=== PATIENT | female | born 1970 | race Caucasian/White ===

== ENCOUNTER 2017-08-21 08:35 | Observation (INO) ==
[2017-08-21] MEDS ORDERED: Sodium Chloride 0.9% 1,000 ML PRIMARY IV ONE (08:43)
[2017-08-21] MEDS ORDERED: NORMAL SALINE 10 ML SYRINGE FLUSH IVP PRN ×2 (08:43→12:01)
--- NOTE | 2017-08-21 08:50 | EKG ---
[address] [place] [id number] Measurements Intervals Balm Rate: 88 P: 52 VT: 139 QRS: 38 QRSD: 92 T: 31 QT: 389 QTc: 435 Interpretive Statements SINUS RHYTHM CANNOT R/O INFERIOR MYOCARDIAL INFARCTION, AGE UNDETERMINED Compared to ECG 04/29/2016 02:43:59 Criteria for inferior infarction now present Electronically Signed On 08-21-17 12:16:58 MST by Tray Tadeo [email or web address]
--- NOTE | 2017-08-21 08:52 | PDOC ---
Neuro Symptoms / Deficit HPI - General Chief Complaint: Neurological Complaints Stated Complaint: POSSIBLE STROKE, SLURRED SPEECH Date Seen by Provider: 08/21/17 Time Seen by Provider: 08:45 Source: POSITIVE: Patient Exam Limitations: POSITIVE: No limitations Nurse's Notes Reviewed & Considered: Yes - History of Present Illness Initial Comments: The patient is a 47-year-old female who presents to the emergency department with complaints of speech difficulties. She states that at approximately 10:00 last night she noticed that she was having a difficult time saying the word that she wanted to and every now and then she was mispronouncing a word. She states that the symptom seems to come and go a little bit. The symptoms were persistent this morning and she was going to go see her doctor at the medical office and they recommended that she come to the emergency room by ambulance. She decided to come by private vehicle instead. She denies any associated headache, change in vision, increased numbness or weakness in her arms or legs, chest pain or shortness of breath. She did have a stroke in May of last year which affected her right side and she does have some residual numbness from that. She does report that she had some stomach flu symptoms last week which seemed to resolve currently. - Patient Home Medications Home Medications: Home Medications Aspirin [Kori Chewable] 81 mg PO DAILY 07/06/17 atorvastatin 40 mg tablet 40 mg PO BEDTIME #30 tab 07/18/17 - Patient Allergies Allergies/Adverse Reactions: Allergies 3 Allergy/AdvReac Type Severity Reaction Status Date / Time levofloxacin [From Levaquin] Allergy Intermediate RASH Verified 08/21/17 08:44 Past Medical History - heen HEENT History: Denies History Cardiovascular History: Denies History Respiratory History: Denies History Gastrointestinal History: GERD, Pancreatitis Additional Gastrointestinal History: ERCP X6 MOST RECENT 05/22/11; REPORTEDLY HAD PANCREATIC STONES REMOVED AT THE [facility] Genitourinary History: Denies History Endocrine History: Denies History Musculoskeletal History: Denies History Prosthesis or Implant: No Neurological History: CVA Blood Disorders: Denies History Psychiatric History: Depression, Anxiety Disorders History of Sexually Transmitted Diseases: No Cancer History: Other (please comment) History of MDRO: No History of Other Communicable Diseases: No Alcohol Use: None In the Past 12 Months, Have Used or Abuse Any Substance: Marijuana Previous Surgical History: Yes Type / Date of Surgery: CHOLECYSTECTOMY, ERCP x6, TUBAL LIGATION, TONSILLECTOMY , BLADDER SURGERY Anesthesia Reactions: No Malignant Hyperthermia: No Significant Family History: COPD, Diabetes, Heart disease, Hypertension Past Medical History Reviewed: Reviewed - No Changes ROS - Limitations ROS Limitations: No Limitations Constitution: DENIES: Chills, Fever Cardiovascular: DENIES: Chest Pain, Heart Palpitations, Edema Respiratory: DENIES: Shortness Of Breath Neurological: REPORTS: Numbness (She has some numbness in her right arm and leg however this is residual from her previous stroke). DENIES: Headache, Difficulty Walking, Weakness Gastrointestinal: REPORTS: Vomitting (Last week, none currently). DENIES: Abdominal Pain Musculoskeletal: REPORTS: Denies MS Symptoms Genitourinary: REPORTS: Denies Symptoms Eyes: REPORTS: Denies Symptoms ENT: REPORTS: Denies Symptoms Skin: DENIES: Rash Neuro Symptoms / Deficit Exam - General Appearance General Appearance: POSITIVE: No Acute Distress, Mild Distress - HEENT HEENT: POSITIVE: Head Inspection Nml, Eyes Inspection Nml, Ears Inspection Nml, Pharynx Inspect. Nml, PERRL, EOMI - Neuro / Psych Higher Functions: POSITIVE: Oriented to Person, Oriented to Place, Oriented to Time, Normal Speech Cranial Nerves: POSITIVE: Normal As Tested Peripheral Exam: POSITIVE: Sensation Normal, Motor Normal, Other (No focal deficits detected on exam) Neuro Symptom/Deficit Progress - Patient's Progress MDM / ED Course: On presentation to the emergency room the patient is complaining of speech difficulties. Her speech here appears fairly normal. She does not have any obvious detectable focal neurologic deficits. Symptoms started at 10:00 last night. At this point EKG, bedside blood sugar, labs, urinalysis and MRI of the brain have been ordered. Dr. Roger assumed care of the patient at 08 50. Patient Care Time - Estimated PCT Patient Care Time (In Minutes): 10 Vital Signs - VS Reviewed Vital Signs Reviewed: Yes (written nursing documentation reviewed) Discharge Clinical Impression: Difficulty with speech, History of CVA (cerebrovascular accident) Discharge Disposition: Other (Patient care transferred to Dr. Roger at 08 50) Follow Up With: HILLARY DOWLING [Primary Care Provider] -
[2017-08-21] MEDS ORDERED: LORazepam 2 MG/1 ML VIAL IVP ONE ×2 (09:24→20:30)
[2017-08-21 09:25] LABS: BASOPHILS # (AUTO) 0.05 10*3/UL; BASOPHILS % (AUTO) 0.4 % (0-1); EOSINOPHILS # (AUTO) 0.49 10*3/UL; EOSINOPHILS % (AUTO) 3.7 % (0-8); Hematocrit [HCT] 40.4 % (37.0-47.0); Hemoglobin [HGB] 13.2 g/dL (12.0-16.0); LYMPHOCYTES # (AUTO) 3.43 10*3/uL; MEAN CORPUSCULAR HEMOGLOBIN 31.1 PG (27-31); MEAN CORPUSCULAR HGB CONC 32.7 g/dL (33-37); MEAN CORPUSCULAR VOLUME 95.3 FL (81-99); MEAN PLATELET VOLUME 9.9 FL (7.4-12.2); MONOCYTES # (AUTO) 0.79 10*3/UL (0.3-0.8); NEUTROPHILS # (AUTO) 8.45 10*3/UL; NEUTROPHILS % (AUTO) 63.7 % (50-80); RED BLOOD COUNT 4.24 10^6/uL (4.20-5.40)
[2017-08-21 09:27] LABS: PLATELET MORPHOLOGY COMMENT NORMAL MORPHOLOGY (NORM); RBC MORPHOLOGY COMMENT NORMAL MORPHOLOGY (NORM); WBC MORPHOLOGY COMMENT NORMAL MORPHOLOGY (NORM)
[2017-08-21 09:46] LABS: BLOOD UREA NITROGEN 9 mg/dL (7-22); SERUM ALBUMIN 3.7 g/dL (3.5-4.8)
--- NOTE | 2017-08-21 10:27 | PDOC ---
Transfer of Care - Care Accepted Time Care Transferred: 09:00 Report from Transferring Physician Received: Yes MDM / ED Course: Patient had onset of neurological symptoms, including difficulty finding the right word and difficulty speaking, which began last night approximately 10 PM. She reported to the emergency room this morning for evaluation and neurological exam was essentially normal. Home Medications: Home Medications Aspirin [Kori Chewable] 81 mg PO DAILY 07/06/17 atorvastatin 40 mg tablet 40 mg PO BEDTIME #30 tab 07/18/17 Allergies/Adverse Reactions: Allergies levofloxacin [From Levaquin] Allergy (Intermediate, Verified 08/21/17 08:44) RASH Vital Signs Reviewed: Yes Nurse's Notes Reviewed & Considered: Yes - Pending Patient Care Items Pending Patient Care Items: POSITIVE: Labs, CT / MRI Results - Expected Patient Outcome Tentative Impression of Patient: Possible TIA Expected Disposition: POSITIVE: Admit Observation - Re-Evaluation of Patient Re-Examine Time:: 10:55 Disposition of Patient: POSITIVE: Admitted Counseled: POSITIVE: Patient, RE: Lab Results, RE: Radiology Results, RE: DX Pending Test Results Documented: Yes Clinical Impression Documented: Yes - Results Reviewed Lab Results Reviewed by Me: Yes Lab Results: Laboratory Results 08/21/17 08/21/17 08/21/17 Range/Units 09:23 09:23 09:23 WBC 13.25 H (4.8-10.8) 10^3/uL RBC 4.24 (4.20-5.40) 10^6/uL Hgb 13.2 (12.0-16.0) g/dL Hct 40.4 (37.0-47.0) % MCV 95.3 (81-99) FL MCH 31.1 H (27-31) PG MCHC 32.7 L (33-37) g/dL RDW Std Deviation 45.7 (39-50) fL RDW Coeff of Ajit 13.5 (11.5-14.5) % Plt Count 313 (140-350) 10*3/uL MPV 9.9 (7.4-12.2) FL Immature Gran % (Auto) 0.3 (0-5) % Neut % (Auto) 63.7 (50-80) % Lymph % (Auto) 25.9 (10-50) % Payette % (Auto) 6.0 (5-15) % Eos % (Auto) 3.7 (0-8) % Baso % (Auto) 0.4 (0-1) % Immature Gran # (Auto) 0.04 10*3/UL Neut # (Auto) 8.45 10*3/UL Lymph # (Auto) 3.43 10*3/uL Payette # (Auto) 0.79 (0.3-0.8) 10*3/UL Eos # (Auto) 0.49 10*3/UL Baso # (Auto) 0.05 10*3/UL WBC Morphology Comment Normal morphology (NORM) Plt Morphology Comment Normal morphology (NORM) RBC Morph Comment Normal morphology (NORM) PT (9.7-11.4) secs INR (0.00-5.90) N/A APTT (22.6-36.2) SECS Sodium 141 (135-145) meq/L Potassium 4.0 (3.8-5.2) meq/L Chloride 107 (98-112) meq/L Carbon Dioxide 23 (23-33) meq/L Anion Gap 11 (5-20) BUN 9 (7-22) mg/dL Creatinine 0.9 (0.50-1.20) mg/dL Estimated GFR > 60 (>60 ml/min/1.73m(2)) BUN/Creatinine Ratio 10.00 (6-20) Glucose 123 H (78-110) mg/dL Calculated Osmolality 291.0 (267-292) mOsm/kg Lactic Acid (0.70-2.10) MMOL/L Calcium 10.4 (8.7-10.7) mg/dL Magnesium 1.8 (1.6-2.4) mg/dL Total Bilirubin 0.5 (0.3-1.2) mg/dL AST 16 (8-39) IU/L ALT 49 (9-52) IU/L Alkaline Phosphatase 91 (38-126) IU/L Troponin I 0.000 (< 0.040) ng/mL Total Protein 6.3 (6.1-8.0) g/dL Albumin 3.7 (3.5-4.8) g/dL Globulin 2.5 (2.50-4.10) g/dL Albumin/Globulin Ratio 1.40 (1.3-2.0) mg/g 08/21/17 08/21/17 Range/Units 09:23 09:23 WBC (4.8-10.8) 10^3/uL RBC (4.20-5.40) 10^6/uL Hgb (12.0-16.0) g/dL Hct (37.0-47.0) % MCV (81-99) FL MCH (27-31) PG MCHC (33-37) g/dL RDW Std Deviation (39-50) fL RDW Coeff of Ajit (11.5-14.5) % Plt Count (140-350) 10*3/uL MPV (7.4-12.2) FL Immature Gran % (Auto) (0-5) % Neut % (Auto) (50-80) % Lymph % (Auto) (10-50) % Payette % (Auto) (5-15) % Eos % (Auto) (0-8) % Baso % (Auto) (0-1) % Immature Gran # (Auto) 10*3/UL Neut # (Auto) 10*3/UL Lymph # (Auto) 10*3/uL Payette # (Auto) (0.3-0.8) 10*3/UL Eos # (Auto) 10*3/UL Baso # (Auto) 10*3/UL WBC Morphology Comment (NORM) Plt Morphology Comment (NORM) RBC Morph Comment (NORM) PT 10.4 (9.7-11.4) secs INR 0.98 (0.00-5.90) N/A APTT 32.5 (22.6-36.2) SECS Sodium (135-145) meq/L Potassium (3.8-5.2) meq/L Chloride (98-112) meq/L Carbon Dioxide (23-33) meq/L Anion Gap (5-20) BUN (7-22) mg/dL Creatinine (0.50-1.20) mg/dL Estimated GFR (>60 ml/min/1.73m(2)) BUN/Creatinine Ratio (6-20) Glucose (78-110) mg/dL Calculated Osmolality (267-292) mOsm/kg Lactic Acid 1.7 (0.70-2.10) MMOL/L Calcium (8.7-10.7) mg/dL Magnesium (1.6-2.4) mg/dL Total Bilirubin (0.3-1.2) mg/dL AST (8-39) IU/L ALT (9-52) IU/L Alkaline Phosphatase (38-126) IU/L Troponin I (< 0.040) ng/mL Total Protein (6.1-8.0) g/dL Albumin (3.5-4.8) g/dL Globulin (2.50-4.10) g/dL Albumin/Globulin Ratio (1.3-2.0) mg/g - Consult Consult (If Yes, Name of Consulting MD & Time Called): Yes (Dr. Ashton 10:56 hrs) Patient Care Time - Estimated PCT Patient Care Time (In Minutes): 10 Vital Signs - Recent Vital Signs Vital Signs: Vital Signs (Last 8 hours) Temp Pulse Pulse Resp BP Pulse Ox 08/21/17 08:52 88 08/21/17 08:35 97.1 F 103 H 21 128/85 96 - VS Reviewed Vital Signs Reviewed: Yes Discharge Clinical Impression: Difficulty with speech, History of CVA (cerebrovascular accident), Transient ischemic attack Discharge Disposition: Admit to Observation Condition: Stable Patient Instructions Given at Discharge: Transient Ischemic Attack (ED) Follow Up With: HILLARY DOWLING [Primary Care Provider] -
--- NOTE | 2017-08-21 11:12 | DI ---
MRI Brain WO Contrast,08/21/2017 9:12 AM: Clinical History: Speech difficulty Previous Exam: CT head performed July 06, 2017 Findings: Multiplanar MR images are obtained through the brain without contrast, and demonstrate normal, symmet rajan ventricles and other CSF containing spaces. There is no mass, hemorrhage or midline shift. Motion artifact limits evaluation. There is no abnormally increased FLAIR signal. There is some T2 shine through noted on the diffusion mapping. There is no abnormally restricted diffusion. The major vascular flow voids are unremarkable but not well evaluated due to motion artifact. Visualized portions of the upper cervical spine are unremarkable. The skull base is unremarkable. Cer ebellopontine angles are grossly normal. Paranasal sinuses are unremarkable. Impression: 1. No evidence of acute ischemia. 2. Mild mucoperiosteal thickening within the right ethmoid sinuses could represent some sinusitis.
[2017-08-21] MEDS ORDERED: LIDOCAINE W/ SODIUM BICARB 0.5 ML SYR SUBD PRN (12:01)
[2017-08-21] MEDS: Sodium Chloride 0.9% 1,000 ML PRIMARY IV SCH ×2 (14:02→22:53)
--- NOTE | 2017-08-21 14:47 | PDOC ---
HPI - History of Present Illness History of Present Illness: This very nice 47-year-old female with a past medical history significant for stroke last May which showed a affected her right side. Started having some slurring of speech around 10:00 last night her symptoms persisted this morning and initially she was going to see her primary care physician and then decided to come to the ER recommended by their by the primary care physician she has all my examinationto fit difficulties no eye issues moves all 4 extremities good strength and is back to her normal self Past Medical History Medical History: CVA last May Tobacco Use: Current Every Day Smoker In the Past 12 Months, Have Used or Abuse Any of the Following Substance: Marijuana Medication / Allergies Home Medications: Home Medications 3 Medication Instructions Recorded Confirmed Type Aspirin [Kori Chewable] 81 mg PO DAILY 07/06/17 07/06/17 History atorvastatin 40 mg tablet 40 mg PO BEDTIME #30 tab 07/18/17 07/18/17 Rx Allergies/Adverse Reactions: Allergies 3 Allergy/AdvReac Type Severity Reaction Status Date / Time levofloxacin [From Levaquin] Allergy Intermediate RASH Verified 08/21/17 08:44 Review of Systems - Review of Systems All Systems: Reviewed & No Additional Complaints Except as Stated - Neurological Neurologic: DENIES: Numbness/Paresthesia, Weakness, LOC, Dizziness, Memory Loss , Difficulty Walking, Incoordination Exam - Vitals Vital Signs: Vital Signs Temperature 96.5 F Temperature Source Temporal Artery Scan Pulse Rate 82 Respiratory Rate 14 Blood Pressure 92/54 Pulse Ox 92 Oxygen Delivery Method Room Air Height 5 ft 7 in Weight 157 lb 9.6 oz - General General Appearance: No Acute Distress, Cooperative - Head Head Exam: Normal Inspection, Normocephalic, Atraumatic - Eye Eye Exam: POSITIVE: Normal Appearance, PERRL, EOMI, No Scleral Icterus - ENT ENT Exam: POSITIVE: Normal Exam, Normal External Ear Exam, Normal Oropharynx, TM 's Normal Bilaterally, Mucous Membranes Moist - Neck Neck Exam: Normal Inspection, Full ROM, No Tenderness, No Lymphadenopathy, No Thyromegaly, JVP is not Raised - Respiratory Respiratory Exam: POSITIVE: Clear to Auscultation - Bilaterally, Breathing Non Labored, Normal To Percussion, Normal to Percussion and Palpation - Cardiovascular Cardiovascular Exam: POSITIVE: RRR, No Murmur, No Clicks, No Gallops, No Rubs, PMI Non-Displaced - GI/Abdominal GI/Abdominal Exam: POSITIVE: Normal Bowel Sounds, Non Tender, Non Distended, Soft, No Masses, No Hepatomegaly, No Splenomegaly, No Organomegaly - Extremities Extremities Exam: POSITIVE: Normal Inspection, Full ROM, Normal Capillary Refill , No Clubbing Present, No Edema Present, No Cyanosis Present, Negative Walter's sign, Dosalis Pedis Pulses - Stong & Regular Results - Labs CBC and BMP: 08/21/17 09:23 08/21/17 09:23 Assessment and Plan - Patient Problems (1) Transient ischemic attack Current Visit: Yes Status: Acute Comment: MRI revealed no acute stroke patient is still tired we will observe her overnight most likely will be discharged in a.m. we'll also hydrate her since she seems a little dehydrated for poor skin turgor Code(s): G45.9 - Transient cerebral ischemic attack, unspecified
[2017-08-21] MEDS ORDERED: ATORVASTATIN 40 MG TABLET PO SCH (21:00)
[2017-08-22] MEDS ORDERED: NICOTINE 21 MG /DAY PATCH TRANSDERM ONE (00:27)
[2017-08-22 05:11] LABS: BASOPHILS # (AUTO) 0.04 10*3/UL; BASOPHILS % (AUTO) 0.5 % (0-1); BLOOD UREA NITROGEN 9 mg/dL (7-22); BUN/CREATININE RATIO 12.85 (6-20); EOSINOPHILS # (AUTO) 0.39 10*3/UL; EOSINOPHILS % (AUTO) 4.4 % (0-8); Hematocrit [HCT] 38.8 % (37.0-47.0); Hemoglobin [HGB] 12.2 g/dL (12.0-16.0); LYMPHOCYTES # (AUTO) 2.95 10*3/uL; MEAN CORPUSCULAR HEMOGLOBIN 30.5 PG (27-31); MEAN CORPUSCULAR HGB CONC 31.4 g/dL (33-37); MEAN PLATELET VOLUME 10.3 FL (7.4-12.2); MONOCYTES # (AUTO) 0.53 10*3/UL (0.3-0.8); NEUTROPHILS % (AUTO) 55.6 % (50-80); SERUM ALBUMIN 3.2 g/dL (3.5-4.8)
[2017-08-22 05:34] LABS: PLATELET MORPHOLOGY COMMENT NORMAL MORPHOLOGY (NORM); RBC MORPHOLOGY COMMENT NORMAL MORPHOLOGY (NORM); WBC MORPHOLOGY COMMENT NORMAL MORPHOLOGY (NORM)
[2017-08-22 07:08] VITALS: BP 100/67; RESP 16; TEMP 98.4; O2SAT 95
[2017-08-22] MEDS ORDERED: ACETAMINOPHEN 325 MG TABLET PO PRN (07:15)
[2017-08-22] MEDS: Sodium Chloride 0.9% 1,000 ML PRIMARY IV SCH (07:42)
[2017-08-22] MEDS ORDERED: ASPIRIN 81 MG (BABY) CHEWABLE TABLET PO SCH (09:00)
--- NOTE | 2017-08-22 09:41 | DCSUMMARY ---
Hospitalization Summary Hospital Course: Final Discharge Diagnosis: Current Visit Problems Problem Status Onset Code Difficulty with speech Acute R47.9 Transient ischemic attack Acute G45.9 History of CVA (cerebrovascular accident) Chronic Z86.73 Diagnostic Data, Laboratory Data, and Procedures of Signifigance: History and Physical pertinent to Admission: Course of Hospitalization: Is a very nice 47-year-old female who had a stroke last year was admitted at the [facility] followed by Dr. Nugent. Comes into the ER last night with some slurred speech on my evaluation yesterday she was back to her normal self with the further slurred speech she moves all 4 extremities talking in full sentences able to repeat and multiple hard words. Patient was examined with nurse Branch both times this morning the same stable had a great night's sleep will be discharged in stable and improved condition and a follow-up with her neurologist was done today for her further workup will be decided by neurology. She did have an MRI of her head which showed no acute abnormality On the date of discharge, the patient was examined: Gen.: No acute distress, alert, nontoxic Heart: Regular rate and rhythm, no murmurs, clicks, gallops, or rubs Lungs: Clear to auscultation bilaterally, breathing is nonlabored Abdomen/GI: Normal tones on auscultation, soft, nontender, nondistended Musculoskeletal/extremities: No clubbing, cyanosis, or edema Vitals reviewed and are listed below Vital Signs (24 hrs) Temp Pulse Pulse Pulse Resp BP BP 08/22/17 07:16 68 08/22/17 07:06 98.4 F 74 16 100/67 08/22/17 04:42 98.2 F 73 18 96/64 08/22/17 03:00 79 08/22/17 01:00 96.7 F L 87 16 92/63 08/21/17 23:00 84 08/21/17 20:47 97.6 F 76 16 95/69 08/21/17 19:00 80 76 08/21/17 16:18 74 20 98/62 08/21/17 15:00 77 08/21/17 14:49 08/21/17 13:22 08/21/17 11:25 96.5 F L 82 14 92/54 Pulse Ox 08/22/17 07:16 02/01/18 07:06 95 08/22/17 04:42 98 08/22/17 03:00 08/22/17 01:00 92 08/21/17 23:00 08/21/17 20:47 96 08/21/17 19:00 08/21/17 16:18 95 08/21/17 15:00 08/21/17 14:49 90 08/21/17 13:22 92 08/21/17 11:25 95 Assessment and Plan: 1. As per discharge assessments above 2. Disposition: Home 3. Condition on discharge, stable and improved. 4. Diet: regular diet 5. Activities: resume normal activities 6. Follow-Up: 1. PCP follow-up in [place] with neurology appointment was made for today 2. 7. Medications at the Time of Discharge: Home Medications 3 Medication Instructions Recorded Confirmed Type Aspirin [Kori Chewable Aspirin] 81 mg PO DAILY 07/06/17 07/06/17 History atorvastatin 40 mg tablet 40 mg PO BEDTIME #30 tab 07/18/17 07/18/17 Rx 8. Time, care, counseling and coordination of care for this discharge is greater than 30 minutes. Exam - Vitals Vital Signs: Vital Signs Temperature 98.4 F Temperature Source Temporal Artery Scan Pulse Rate [Apical] 68 Pulse Rate [Pulse Oximeter] 74 Pulse Rate 79 Respiratory Rate 16 Blood Pressure [Right Arm] 100/67 Blood Pressure 92/54 Pulse Ox 95 Oxygen Flow Rate 8 Oxygen Delivery Method Room Air Height 5 ft 7 in Weight 162 lb 6 oz Patient Problems - Patient Problem List (1) Transient ischemic attack Current Visit: Yes Status: Acute Code(s): G45.9 - Transient cerebral ischemic attack, unspecified Category: Medical
--- NOTE | 2017-08-22 09:51 | OTI REPORT ---
Thank you for the referral of Belen Carpenter. She was seen on 08/21/17 for an occupational therapy inpatient evaluation secondary to a TIA. SUBJECTIVE: The patient is a 47-year-old female. The patient reports that she was at home when she started to notice that she was slurring her words and having difficulty articulating her words. She was also having fuzzy thoughts and was being somewhat forgetful. She states she came to the clinic and they suggested that she go to the emergency room and was eventually admitted to the hospital. The patient reports that she lives at home with her and her child. The patient states she has other grown children that live in [place], [place] as well. The patient does report that she is independent in all ADLs, she completes all grocery shopping, cooking, and cleaning tasks for herself and her family. Her works in the [employer] and he works two weeks on/two weeks off, so for two weeks at a time the patient's is out of town. The patient reports some mild tingling/numbness down the right arm as well as in the right leg. The patient did have a stroke on June 05, 2017 per her report and has since noticed some right sided weakness. The patient reports that she has four steps to the entrance of her home with hand rails on either side as well as a tub/shower combo with no hand rails at home. She does not use any adaptive equipment when walking within her home. She is going to a neurology appointment in [place] tomorrow. PAST MEDICAL HISTORY: Past medical history can be found in the patient's medical record. OBJECTIVE FINDINGS: General observations: The patient was oriented to person, place, date, and reason for hospitalization. Bed mobility: The patient demonstrated the ability to move from supine to sitting edge of bed independently. Range of motion: The patient demonstrates upper extremity range of motion for the shoulders, elbows, hands, and wrists that is within normal limits. Strength: Upper extremity strength on the right side was 4/5 for the shoulder, elbow, hand, and wrist. Upper extremity strength on the left was 4+/5 for the shoulder, elbow, hand, and wrist. Transfers: The patient demonstrated the ability to transfer from sit to stand independently. Balance: The patient did have minor losses of balance during standing balance tasks with eyes closed as well as during functional ambulation, especially when other distractions were present. Speech: The patient did have some difficulty articulating her words. When asked to repeat a sentence exactly as it was said to her, she was unable to do the task. Vision: The patient did demonstrate the ability to track horizontally as well as vertically and converge and diverge eyes. ASSESSMENT: Problem List: Upper extremity weakness Decreased mention function/cognition Decreased balance Short-Term Goals: To be met by discharge from inpatient: Patient will increase upper extremity strength by one manual muscle grade bilaterally. Patient will demonstrate the ability to articulate three sentences exactly as they were said without verbal reminders or assistance. Patient will be able to complete all transfers including toilet/shower/car without loss of balance. Long-Term Goals: To be met following discharge from inpatient: Patient will be seen by outpatient physical therapy for continued strengthening. Patient will return home to prior level of function. TREATMENT PLAN: Patient will be seen B.I.D during the week and one time per day over the weekend as an inpatient to address the above goals and objectives. INITIAL TREATMENT: Treatment today consisted of the initial evaluation activities only. HIMANSHU
--- NOTE | 2017-08-22 10:23 | PTI REPORT ---
Thank you for the referral of Belen Carpenter. She was seen on 08/21/17 for an inpatient evaluation secondary to a TIA. SUBJECTIVE: The patient is a 47-year-old female. The patient reports she lives at home with her and her 7-year-old son. She states she has four stairs to enter the house with a hand rail with which she states she does not have any issues. She was fully independent with ADLs and iADLs prior to hospital admission. She states she did have a stroke on June 05, 2017 and does experience right arm and lower extremity tingling on the lateral aspects. The patient denies any pain at this time. PAST MEDICAL HISTORY: Past medical history can be found in the patient's medical record. OBJECTIVE FINDINGS: General observations: The patient has bilateral negative Trujillo's sign and 2+ dorsal pedal pulses bilaterally. Range of motion: Range of motion is within functional limits throughout lower extremities. Strength: Lower extremity strength is 4+/5 throughout. Bed mobility: The patient is able to complete bed mobility of supine rolling to right and supine rolling to left with supervision. Transfers: The patient is able to transfer from sit to stand with supervision. Ambulation: The patient is able to ambulate 175 feet with stand by assist. The patient did have two minor losses of balance during ambulation which resolved with stepping strategy. Balance: Balance was tested today. The patient had a 6" functional reach test. The patient had a Romberg with eyes open x30 seconds and with eyes closed x12 seconds. Sitting dynamic and static balance are both good. Static standing balance is fair plus. Dynamic standing balance is poor plus. ASSESSMENT: The patient has balance deficits consistent with TIA. Subjective and objective findings are also consistent with minor loss of balance and slight generalized weakness. It was recommended that the patient get a cane for external assistance at some point to which the patient was agreeable with. Short-Term Goals: To be met by discharge from inpatient: Patient will be able to complete transfers with independence. Patient will be able to ambulate 150 feet with supervision and no loss of balance for household ambulation. Patient will demonstrate bilateral lower extremity strength of 4+/5. Long-Term Goals: To be met following discharge from inpatient: Patient will be able to ambulate 300 feet for community ambulation with no loss of balance. Patient will demonstrate bilateral lower extremity strength of 5/5 for carry over with ambulation and transfer safety. TREATMENT PLAN: Patient will be seen B.I.D during the week and one time per day over the weekend as an inpatient to address the above goals and objectives. INITIAL TREATMENT: Treatment today consisted of the initial evaluation followed by range of motion , manual resisted activity, ambulation x175 feet with stand by assist with two losses of balance resolved with stepping, and transfer activities. The patient was left in bed with bed alarm on in no apparent distress. Call button was within reach and nursing was notified. [facility] CENTERIla
--- NOTE | 2017-08-22 11:50 | OT.PROG ---
Progress Note Progress Note: S: pt states it feels good to move arm and leg. Reports that she hopes to go home and return as an out-pt. O: pt was seen in her room in the a.m. and completed entire transfer downstairs Ind. She completed Proprioceptive input through UE rolling ball back and forth/ side to side for total of 3 min. She also completed LE prop input as well. Completed UE motion activity with 2# ball in shoulder flex/abd/bicep flex with BUe. She completed 3 min on trampoline also for proprioceptive input through LE' s. She completed 5 min on UE bike and then returned to her room INd. A: pt completed therapy well today, but does display some deficiency's in LE/UE and may benefit from Out-pt therapy P: continue per POC.
--- NOTE | 2017-08-23 15:54 | PT AM DAY ---
Diagnosis : TIA AM - Physical Therapy S: The patient states she is feeling good this morning. O: The patient ambulated 175 feet to PT gym where she performed therapeutic exercises including the NuStep, balance exercises on the AIREX, jack step overs x2 laps, and sit to stands x10. The patient then ambulated 175 feet back to her room where she was left with call light within reach and alarm set. A: The patient tolerated PT well. She was able to perform balance with contact guard assist. She has met all goals at this time. P: Continue seeing patient BID during the week and one time per day over the weekend until discharge. HIMANSHU
== END 2017-08-22 11:46 | disposition home or self-care (01) ==
LOC: MED/SURG 08:35 → ER 08:35 → MED/SURG 11:25 → UNDODISOB 08-22 11:46
PROVIDERS: ADMIT Internal Medicine; ATTEND Internal Medicine

== ENCOUNTER 2018-10-28 17:28 | Inpatient (IN) ==
[2018-10-28] MEDS ORDERED: methylPREDNISolone 125 MG/2 ML VIAL IVP ONE (17:39)
[2018-10-28] MEDS ORDERED: Sodium Chloride 0.9% 1,000 ML PRIMARY IV ONE (17:39)
[2018-10-28] MEDS ORDERED: IPRATROPIUM/ALBUTEROL SULFATE 3 ML NEB NEB ONE (17:39)
--- NOTE | 2018-10-28 17:48 | PDOC ---
Dyspnea HPI - General Chief Complaint: Respiratory Complaint Stated Complaint: SOB Date Seen by Provider: 10/28/18 Time Seen by Provider: 17:40 Source: POSITIVE: Patient Exam Limitations: POSITIVE: No limitations Treatment Prior to Arrival: REPORTS: Albuterol Neb Treatment (She did take an albuterol neb treatment prior to coming to the emergency department) Nurse's Notes Reviewed & Considered: Yes - History of Present Illness Initial Comments: The patient is a 48-year-old female who presents to the emergency department with complaints of increased shortness of breath. She states that she developed upper respiratory symptoms including cough, congestion about 4 or 5 days ago. She states that she has been using neb treatments at home which seemed to help some. Over the past 24 hours she seems to gotten worse and she has increased shortness of breath especially when she gets up and walks around. She has had some fevers especially when the illness first started. She denies any chest pain, pain or swelling in her legs. She does have generalized aches and malaise. She does have a history of smoking approximately 1 pack of cigarettes per day. She does not normally wear oxygen at night. Oxygen saturations were in the mid-80s when she arrived to the emergency department she was placed on O2 per nasal cannula. - Patient Home Medications Home Medications: Home Medications Aspirin [Kori Chewable Aspirin] 81 mg PO DAILY 07/06/17 atorvastatin 40 mg tablet 40 mg PO BEDTIME #30 tab 08/29/18 - Patient Allergies Allergies/Adverse Reactions: Allergies Allergy/AdvReac Type Severity Reaction Status Date / Time levofloxacin [From Levaquin] Allergy Intermediate RASH Verified 09/26/18 14:42 Past Medical History - heen HEENT History: Denies History Cardiovascular History: Hyperlipidemia Respiratory History: Denies History Gastrointestinal History: GERD, Pancreatitis Additional Gastrointestinal History: ERCP X6 MOST RECENT 05/22/11; REPORTEDLY HAD PANCREATIC STONES REMOVED AT THE [facility] Genitourinary History: Denies History Additional Genitourinary History: BLADDER CANCER WITH BLADDER SURGERY Endocrine History: Denies History Musculoskeletal History: Denies History Prosthesis or Implant: No Neurological History: CVA Additional Neurological History: 05/2017 Blood Disorders: Denies History Psychiatric History: Depression, Anxiety Disorders History of Sexually Transmitted Diseases: No Cancer History: Other (please comment) Cancer Treatment / Date(s) of Treatment: SURGICAL REMOVAL History of MDRO: No History of Other Communicable Diseases: No Alcohol Use: None In the Past 12 Months, Have Used or Abuse Any Substance: Marijuana Previous Surgical History: Yes Type / Date of Surgery: CHOLECYSTECTOMY, ERCP x6, TUBAL LIGATION, TONSILLECTOMY, BLADDER SURGERY Anesthesia Reactions: No Malignant Hyperthermia: No Significant Family History: COPD, Diabetes, Heart disease, Hypertension Past Medical History Reviewed: Reviewed - No Changes ROS - Limitations ROS Limitations: No Limitations Constitution: REPORTS: Chills, Fever, Other (General malaise) Cardiovascular: DENIES: Chest Pain, Edema Respiratory: REPORTS: Cough Non Productive (Cough is mostly nonproductive), Cough Productive, Shortness Of Breath, Wheezing Neurological: REPORTS: Headache. DENIES: Numbness, Weakness Gastrointestinal: REPORTS: Denies GI Symptoms Musculoskeletal: REPORTS: Denies MS Symptoms Genitourinary: REPORTS: Denies Symptoms Eyes: REPORTS: Denies Symptoms ENT: REPORTS: Denies Symptoms Skin: DENIES: Rash Dyspnea Physical Exam - General Appearance General Appearance: REPORTS: Alert, Cooperative, No Acute Distress - HEENT HEENT: POSITIVE: Head Inspection Nml, Eyes Inspection Nml, Ears Inspection Nml, Nose Inspection Nml, Pharynx Inspect. Nml, PERRL, EOMI - Neck Neck: REPORTS: Normal Inspection - Respiratory Respiratory: REPORTS: No Respiratory Distress, Other (She does have decreased breath sounds with expiratory wheezes noted bilaterally, rhonchi in the right lung base) - Cardiovascular Cardiovascular: REPORTS: Regular Rate and Rhythm, Heart Sounds Normal - Abdomen Abdomen: Soft: (All Quadrants), Denies Tenderness: (All Quadrants) - Skin Skin: REPORTS: Intact, No Rash - Extremities Extremity: Normal ROM: (All Extremities), Normal Inspection: (All Extremities) - Neurological / Psychological Neurological: POSITIVE: Oriented X3, lighting specialist Normal As Tested, Motor Normal, Sensation Normal Dyspnea Progress - Results Reviewed by me Xrays/CTs/US Reviewed by me: Yes Discussed with Radiologist: Yes Radiology Findings: Chest x-ray shows no acute findings per radiologist. CT of the chest shows no evidence of PE, she does have some groundglass opacities as well as findings consistent with emphysema. 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 She has evidence of fatty liver per radiologist. Lab Results Reviewed by Me: Yes CBC and BMP: 10/28/18 18:27 10/28/18 18:27 Lab Results:: Laboratory Results 10/28/18 10/28/18 10/28/18 18:20 18:25 18:27 WBC RBC Hgb Hct MCV MCH MCHC RDW Std Deviation RDW Coeff of Ajit Plt Count MPV Neutrophils % (Manual) Band Neutrophils % Lymphocytes % (Manual) Monocytes % (Manual) Eosinophils % (Manual) Basophils % (Manual) Metamyelocytes % Myelocytes % Promyelocytes % Blast Cells WBC Morphology Comment Plt Morphology Comment RBC Morph Comment D-Dimer VBG pH 7.46 H VBG pCO2 33 L VBG HCO3 24 VBG Base Excess 0 Sodium Potassium Chloride Carbon Dioxide Anion Gap BUN Creatinine Estimated GFR BUN/Creatinine Ratio Glucose Calculated Osmolality Lactic Acid 1.0 Calcium Magnesium 1.9 Total Bilirubin AST ALT Alkaline Phosphatase Troponin I C-Reactive Protein 1.2 H NT-Pro-B Natriuret Pep 542 H Total Protein Albumin Globulin Albumin/Globulin Ratio 10/28/18 10/28/18 10/28/18 18:27 18:27 18:27 WBC 10.22 RBC 4.68 Hgb 14.4 Hct 44.5 MCV 95.1 MCH 30.8 MCHC 32.4 L RDW Std Deviation 45.0 RDW Coeff of Ajit 13.4 Plt Count 357 H MPV 9.9 Neutrophils % (Manual) 70 Band Neutrophils % 3 Lymphocytes % (Manual) 22 Monocytes % (Manual) 4 Eosinophils % (Manual) 1 Basophils % (Manual) 0 Metamyelocytes % 0 Myelocytes % 0 Promyelocytes % 0 Blast Cells 0 WBC Morphology Comment See comments Plt Morphology Comment Normal morphology RBC Morph Comment Normal morphology D-Dimer 0.60 H VBG pH VBG pCO2 VBG HCO3 VBG Base Excess Sodium Potassium Chloride Carbon Dioxide Anion Gap BUN Creatinine Estimated GFR BUN/Creatinine Ratio Glucose Calculated Osmolality Lactic Acid Calcium Magnesium Total Bilirubin AST ALT Alkaline Phosphatase Troponin I < 0.012 C-Reactive Protein NT-Pro-B Natriuret Pep Total Protein Albumin Globulin Albumin/Globulin Ratio 10/28/18 18:27 WBC RBC Hgb Hct MCV MCH MCHC RDW Std Deviation RDW Coeff of Ajit Plt Count MPV Neutrophils % (Manual) Band Neutrophils % Lymphocytes % (Manual) Monocytes % (Manual) Eosinophils % (Manual) Basophils % (Manual) Metamyelocytes % Myelocytes % Promyelocytes % Blast Cells WBC Morphology Comment Plt Morphology Comment RBC Morph Comment D-Dimer VBG pH VBG pCO2 VBG HCO3 VBG Base Excess Sodium 139 Potassium 3.6 L Chloride 108 Carbon Dioxide 23 Anion Gap 8 BUN 3 L Creatinine 0.6 Estimated GFR > 60 BUN/Creatinine Ratio 5.00 L Glucose 92 Calculated Osmolality 284.0 Lactic Acid Calcium 9.0 Magnesium Total Bilirubin 0.6 AST 18 ALT 23 Alkaline Phosphatase 134 H Troponin I C-Reactive Protein NT-Pro-B Natriuret Pep Total Protein 6.5 Albumin 3.6 Globulin 2.9 Albumin/Globulin Ratio 1.20 L EKG Interpreted/Reviewed By Me:: Yes EKG Interpretation:: POSITIVE: Normal Sinus Rhythm, Normal Rate, Normal QRS, Normal ST/T - Patient's Progress MDM / ED Course: She was hypoxic on arrival to the emergency department with oxygen saturations of 86% on room air. She was placed on 2 L per nasal cannula which brought her oxygen saturations up to 93%. She was afebrile on arrival. Blood cultures and lactate as well as venous blood gas were drawn with initial IV start. The patient received a DuoNeb as well as Solu-Medrol 125 mg IV. Her venous blood gas revealed a pH of 7.46 with a PCO2 of 33. EKG shows normal sinus rhythm with no acute ST segment changes. She was feeling subjectively better after administration of steroids and neb treatments. Her blood work is unremarkable except for a slightly elevated BNP and slightly elevated d-dimer. Chest x-ray shows some chronic findings with no acute infiltrate or findings per radiologist. Respiratory panel is positive for rhinovirus/enterovirus. Her clinical presentation is most consistent with COPD exacerbation with possible early pneumonia and associated hypoxia. 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 Patient is discussed with Dr. Colunga has agreed to admit the patient for further care. She did receive IV Zithromax prior to admission. - Consult Counseled: POSITIVE: Patient, RE: Lab Results, RE: Radiology Results, RE: DX, RE: Need for F/U Patient Care Time - Estimated PCT Patient Care Time (In Minutes): 40 Vital Signs - Recent Vital Signs Vital Signs: Vital Signs (Last 8 hours) Temp Pulse Pulse Resp BP Pulse Ox 10/28/18 23:25 89 22 93 10/28/18 23:00 96 10/28/18 22:00 80 16 10/28/18 18:02 82 18 91 10/28/18 18:01 77 18 91 10/28/18 17:39 98.7 F 82 16 119/68 90 10/28/18 17:29 97.0 F 85 20 121/75 92 - VS Reviewed Vital Signs Reviewed: Yes Discharge Clinical Impression: COPD exacerbation, Hypoxia Discharge Disposition: Admit to Inpatient Condition: Fair Date Decision to Admit to Inpatient: 10/28/18 Time Decision to Admit to Inpatient: 21:30
--- NOTE | 2018-10-28 17:55 | EKG ---
[address] [address] Measurements Intervals [place] Rate: 79 P: 68 NM: 135 QRS: 52 QRSD: 90 T: 43 QT: 401 QTc: 435 Interpretive Statements SINUS RHYTHM Compared to ECG 08/10/2018 20:05:23 ST (T wave) deviation no longer present Electronically Signed On 10-28-18 19:02:54 MDT by Tray Tadeo [email or web address]
[2018-10-28 18:36] LABS: VENOUS PH 7.46 (7.32-7.42)
[2018-10-28 18:39] LABS: Hematocrit [HCT] 44.5 % (37.0-47.0); Hemoglobin [HGB] 14.4 g/dL (12.0-16.0); MEAN CORPUSCULAR HEMOGLOBIN 30.8 PG (27-31); MEAN CORPUSCULAR HGB CONC 32.4 g/dL (33-37); MEAN CORPUSCULAR VOLUME 95.1 FL (81-99); MEAN PLATELET VOLUME 9.9 FL (7.4-12.2); RED BLOOD COUNT 4.68 10^6/uL (4.20-5.40)
[2018-10-28 18:45] LABS: BLOOD UREA NITROGEN 3 mg/dL (7-22); SERUM ALBUMIN 3.6 g/dL (3.5-4.8)
[2018-10-28 18:46] LABS: PLATELET MORPHOLOGY COMMENT NORMAL MORPHOLOGY (NORM); RBC MORPHOLOGY COMMENT NORMAL MORPHOLOGY (NORM); WBC MORPHOLOGY COMMENT SEE COMMENTS (NORM)
[2018-10-28 18:47] LABS: BAND NEUTROPHILS % 3 % (0-10); BASOPHILS % (MANUAL) 0 % (0-1); EOSINOPHILS % (MANUAL) 1 % (0-8); METAMYELOCYTES % 0 %; MONOCYTES % (MANUAL) 4 % (0-12); MYELOCYTES % 0 %; NEUTROPHILS % (MANUAL) 70 % (50-80); PROMYELOCYTES % 0 %
--- NOTE | 2018-10-28 19:31 | DI ---
AP CHEST X-RAY, 10/28/2018 5:41 PM : Clinical History: Dyspnea. Previous Exam: 08/10/2018. Soft Tissues: No acute soft tissue abnormality. Bones: Normal. Heart: Normal heart. Lungs: No infiltrates. Effusion(s): None. There is chronic blunting of the right costophrenic angle. Mediastinum: Normal mediastinum. Nodules: No pulmonary nodules. Readin. No acute infiltrate or effusion. 2. There is chronic blunting of the right costophrenic angle.
--- NOTE | 2018-10-28 20:57 | DI ---
CT ANGIOGRAM OF THE CHEST, 10/28/2018 7:06 PM : Clinical History: Hypoxia. Elevated D-dimer test. Previous Exam: 04/29/2016; 08/10/2018. Technique: Scans from base of neck to lung bases with IV contrast. Bolus tracking protocol was not us ed for timing the injection. Non-MIPS and MIPS sagittal/coronal images generated. IV Contrast: 75 mL of Isovue 300 from the left arm. Base of Neck: 12 mm nonfunctioning thyroid nodule at the junction between the right lower pole and is thmus. This patient apparently has had previous thrombosis of the left axillary, subclavian, and left brachiocephalic veins with subsequent minimal and partial recanalization. Only a thin diameter lumen is present in these vessels. There are collateral channels extending over the anterior aspect of the left chest wall that cross the midline and also filled the epidural venous plexus with subsequent re constitution to fill the superior vena cava. The right internal jugular vein has a large caliber. The left internal jugular vein is not visualized. Nodes: Normal axillary, supraclavicular, mediastinal, and hilar lymph nodes. Heart: Normal. No coronary artery calcifications. Aorta: Normal thoracic aorta. No aneurysm or dissection. Pulmonary Arteries: Normal. No pulmonary emboli or infarcts; no pulmonary hypertension. Lungs: No typical alveolar infiltrate. There are patchy groundglass type infiltrates bilaterally that are similar to the study of 04/29/2016, although in different locations. The most recent exam did not show any of these infiltrates or nodular densities. Diffuse small blebs bilaterally indicating centr ilobular emphysema. Effusion(s): None. Nodules: None. Bony Structures: Normal visualized portions of ribs, sternum, scapulae, clavicles, and shoulders. Nor mal visualized portions of thoracic spine. Limited Upper Abdomen: Normal adrenal glands and and mild splenomegaly. Hepatomegaly with diffuse fat ty infiltration. READIN. Normal CTA of the chest. There are no pulmonary emboli or pulmonary infarcts. 2. Patchy groundglass type infiltrates bilaterally. These are similar but in different locations in the lungs to those infiltrate seen on the study from 2015 but absent on the study of 08/10/2018. 3. Centrilobular emphysema. 4. 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 Contrast fills via collate rals over the chest wall and breast that communicate with the internal mammary vein and other deep ve in such as the epidural venous plexus to reconstitute the superior vena cava. 5. Hepatosplenomegaly. There is diffuse fatty infiltration.
[2018-10-28] MEDS ORDERED: LIDOCAINE W/ SODIUM BICARB 0.5 ML SYR SUBD PRN (21:07)
[2018-10-28] MEDS ORDERED: NICOTINE 21 MG /DAY PATCH TRANSDERM PRN (21:10)
--- NOTE | 2018-10-28 21:10 | PDOC ---
HPI - History of Present Illness Date of Service: 10/28/18 Time of Service: 20:50 Chief Complaint: Cough, shortness of breath of 10 days duration History of Present Illness: This is a 48 years old female with medical history significant for history of previous CVA in 2017 currently on aspirin and Lipitor who presented to the hospital with history of cough, nasal congestion, shortness of breath and wheezing being going on for 10 days. Symptoms continued and because of that she came into the ER. In the ER she was found to be hypoxic with saturation of 86%. She was given DuoNeb and that helped. A chest x-ray showed no evidence of infiltrate CT of the chest showed no PE but it did show evidence of patchy infiltrate and she was admitted. She feels somewhat better Compared to when she came in. She did say that she had some fever beginning of her illness but not currently. She did use her son nebulizer treatment at home. Past Medical History Medical History: 1. History of CVA in May 2017. 2. History of previous pancreatitis, had stone removal in the past with ERCP Surgical History: 1. History of cholecystectomy. 2. History of tubal ligation Family History: Reviewed an Not Pertinent Past Social History: She smokes about a pack a day last time she stmoked was 10 days ago, she used to be a heavy drinker but quit at age 28, no drugs. Tobacco Use: Current Every Day Smoker In the Past 12 Months, Have Used or Abuse Any of the Following Substance: Alyse mendez Alcohol Use: None Medication / Allergies Home Medications: Home Medications Medication Instructions Recorded Confirmed Type Aspirin [Kori Chewable Aspirin] 81 mg PO DAILY 07/06/17 09/26/18 History atorvastatin 40 mg tablet 40 mg PO BEDTIME #30 tab 08/29/18 09/26/18 Rx Allergies/Adverse Reactions: Allergies Allergy/AdvReac Type Severity Reaction Status Date / Time levofloxacin [From Levaquin] Allergy Intermediate RASH Verified 09/26/18 14:42 Review of Systems - Review of Systems All Systems: Reviewed & No Additional Complaints Except as Stated Exam - Vitals Vital Signs: Vital Signs Temperature 97.0 F Temperature Source Temporal Artery Scan Pulse Rate [Pulse Oximeter] 85 Pulse Rate 82 Respiratory Rate 18 Blood Pressure [Left Arm] 121/75 Pulse Ox 91 Oxygen Flow Rate 2 Oxygen Delivery Method Nasal Cannula Height 5 ft 7 in Weight 160 lb - General General Appearance: No Acute Distress, Cooperative, Obese - Head Head Exam: Normal Inspection, Atraumatic - Eye Eye Exam: POSITIVE: Normal Appearance - ENT ENT Exam: POSITIVE: Normal Exam - Neck Neck Exam: Normal Inspection - Respiratory Additional Respiratory Exam Details: Very poor air entry but otherwise clear - Cardiovascular Cardiovascular Exam: POSITIVE: RRR - GI/Abdominal GI/Abdominal Exam: POSITIVE: Normal Bowel Sounds, Non Tender, Non Distended, Soft, No Organomegaly - Rectal Rectal Exam: POSITIVE: Deferred - External Exam: POSITIVE: Deferred - Extremities Extremities Exam: POSITIVE: Normal Inspection - Back Back Exam: POSITIVE: Normal Inspection - Neurological Neurological Exam: POSITIVE: Alert, Oriented x 3, CN II-XII Intact, No Facial Droop, Speech Intact / Clear, Moves All Extremities Equally - Psychiatric Psychiatric Exam: POSITIVE: Normal Affect Results - Labs CBC and BMP: 10/28/18 18:27 10/28/18 18:27 - EKG Data -: EKG Interpreted by Me Rate: Normal EKG Shows Normal: Sinus Rhythm - EKG Data EKG Interpretation: Other (EKG shows normal sinus rhythm) - Imaging Status: Report Reviewed by Me (CT chest 1. Normal CTA of the chest. There are no pulmonary emboli or pulmonary infarcts. 2. Patchy groundglass type infiltrates bilaterally. These are similar but in different locations in the lungs to those infiltrate seen on the study from 2016 but absent on the study of 08/10/2018. 3. Centrilobular emphysema. 4. Apparent prior thrombosis of the left axillary, subclavian, and left brachiocephalic veins with only a small channel visible and no discernible left internal jugular vein. Contrast fills via collaterals over the chest wall and breast that communicate with the internal mammary vein and other deep vein such as the epidural venous plexus to reconstitute the superior vena cava. 5. Hepatosplenomegaly. There is diffuse fatty infiltration.) Assessment and Plan - Patient Problems (1) Pneumonia, primary atypical Current Visit: No Status: Acute Comment: I think we'll treat as pneumonia possible atypical infection. Will put her on Zithromax and Rocephin. There may be an element of COPD exacerbation so we'll add steroids and bronchodilator treatment. There is no evidence of PE there is evidence of prior thromboses apparently in the left axillary and subclavian vein. Code(s): J18.9 - Pneumonia, unspecified organism (2) History of stroke Current Visit: Yes Status: Acute Comment: Continue Lipitor and aspirin Code(s): Z86.73 - Personal history of transient ischemic attack (TIA), and cerebral infarction without residual deficits
[2018-10-28] MEDS ORDERED: Patch Removal NICOTINE PATCH TRANSDERM PRN (21:31)
[2018-10-28] MEDS: ATORVASTATIN 40 MG TABLET PO SCH (22:06)
[2018-10-28] MEDS: ASPIRIN 325 MG EC TABLET PO SCH (22:06)
[2018-10-28] MEDS: Sodium Chloride 0.9% 1,000 ML PRIMARY IV SCH (22:07)
[2018-10-28] MEDS: cefTRIAXone Inj 1 GM in Sodium Chloride 0.9% 100 ML IV SCH (22:07)
[2018-10-28] MEDS: traZODone Tab 50 MG TAB PO SCH (22:33)
[2018-10-28] MEDS: ALBUTEROL SULFATE 2.5 MG/3 ML NEB PRN (23:25)
[2018-10-28] MEDS: methylPREDNISolone 125 MG/2 ML VIAL IVP SCH (23:42)
[2018-10-29] MEDS ORDERED: CALCIUM CARBONATE 500 MG (TUMS) CHEWABLE TABLET PO PRN (02:02)
[2018-10-29] MEDS: ALBUTEROL SULFATE 2.5 MG/3 ML NEB PRN (04:57)
[2018-10-29] MEDS: IPRATROPIUM/ALBUTEROL SULFATE 3 ML NEB NEB SCH ×4 (06:47→19:21)
[2018-10-29] MEDS: methylPREDNISolone 125 MG/2 ML VIAL IVP SCH ×2 (07:42→17:37)
[2018-10-29] MEDS: Sodium Chloride 0.9% 1,000 ML PRIMARY IV SCH ×2 (07:43→08:25)
[2018-10-29] MEDS ORDERED: PANTOPRAZOLE 40 MG TABLET PO ONE (08:10)
--- NOTE | 2018-10-29 08:28 | PDOC(PROG) ---
Date of Service: 10/29/18 Time of Service: 08:30 Interval History: Subjective Patient feels somewhat better compared to yesterday. Cough is more productive. Breathing is better. Her appetite is better. She is having some heartburn. She did say that she had the central line in both upper extremities Objective : Data - Labs CBC and BMP: 10/28/18 18:27 10/28/18 18:27 Objective : Exam - General General Appearance: No Acute Distress, Cooperative - Head Head Exam: Normal Inspection - Eye Eye Exam: Normal Appearance - ENT ENT Exam: Normal Exam - Neck Neck Exam: Normal Inspection - Respiratory Additional Respiratory Exam Details: Very poor air entry with occasional wheeze - Cardiovascular Cardiovascular Exam: RRR - GI/Abdominal GI/Abdominal Exam: Normal Bowel Sounds, Non Tender, Non Distended, Soft, No Organomegaly - Rectal Rectal Exam: Deferred - External Exam: Deferred Exam: Deferred - Extremities Extremities Exam: Normal Inspection - Back Back Exam: Normal Inspection - Neurological Neurological Exam: Alert, Oriented x 3, CN II-XII Intact, No Facial Droop, Speech Intact / Clear, Moves All Extremities Equally - Psychiatric Psychiatric Exam: Normal Affect - Integumentary Integumentary Exam: Normal Color Assessment and Plan - Patient Problems (1) Pneumonia, primary atypical Current Visit: No Status: Acute Comment: Continue antibiotics. We'll stop the IV fluid. Continue bronchodilator and will cut back on the steroid. Code(s): J18.9 - Pneumonia, unspecified organism (2) History of stroke Current Visit: Yes Status: Acute Comment: Continue same medications Code(s): Z86.73 - Personal history of transient ischemic attack (TIA), and cerebral infarction without residual deficits (3) COPD exacerbation Current Visit: Yes Status: Acute Comment: I think there is an element of COPD exacerbation secondary to the infection. Continue current treatment. Code(s): J44.1 - Chronic obstructive pulmonary disease with (acute) exacerbation
[2018-10-29] MEDS: ASPIRIN 325 MG EC TABLET PO SCH (09:04)
[2018-10-29] MEDS: Potassium Chloride Tab 10 MEQ TAB PO SCH (09:04)
[2018-10-29] MEDS: ALPRAZolam Tab 0.25 MG TABLET PO PRN (20:03)
[2018-10-29] MEDS: cefTRIAXone Inj 1 GM in Sodium Chloride 0.9% 100 ML IV SCH (21:00)
[2018-10-29] MEDS: traZODone Tab 50 MG TAB PO SCH (21:00)
[2018-10-29] MEDS: ATORVASTATIN 40 MG TABLET PO SCH (21:00)
[2018-10-30] MEDS: methylPREDNISolone 125 MG/2 ML VIAL IVP SCH ×3 (00:04→16:15)
[2018-10-30] MEDS: ALBUTEROL SULFATE 2.5 MG/3 ML NEB PRN (04:41)
[2018-10-30 05:03] LABS: BLOOD UREA NITROGEN 10 mg/dL (7-22); BUN/CREATININE RATIO 16.66 (6-20)
[2018-10-30] MEDS ORDERED: SODIUM CL 0.9% FOR INH 3 ML NEB NEB ONE (06:36)
[2018-10-30] MEDS: IPRATROPIUM/ALBUTEROL SULFATE 3 ML NEB NEB SCH ×4 (06:59→19:20)
[2018-10-30] MEDS: PANTOPRAZOLE 40 MG TABLET PO SCH (08:20)
[2018-10-30] MEDS: ASPIRIN 325 MG EC TABLET PO SCH (08:20)
[2018-10-30] MEDS: Potassium Chloride Tab 10 MEQ TAB PO SCH (08:20)
[2018-10-30] MEDS: ALPRAZolam Tab 0.25 MG TABLET PO PRN ×2 (09:08→16:16)
--- NOTE | 2018-10-30 10:36 | PDOC(PROG) ---
Date of Service: 10/30/18 Time of Service: 10:40 Interval History: Subjective She feels a little bit better according to her. Her breathing is somewhat better. Still have the cough. Objective : Data - Labs CBC and BMP: 10/28/18 18:27 10/30/18 04:15 Objective : Exam - General General Appearance: No Acute Distress, Cooperative - Head Head Exam: Normal Inspection - Eye Eye Exam: Normal Appearance - ENT ENT Exam: Normal Exam - Neck Neck Exam: Normal Inspection - Respiratory Additional Respiratory Exam Details: Very poor air entry with occasional wheeze - Cardiovascular Cardiovascular Exam: RRR - GI/Abdominal GI/Abdominal Exam: Normal Bowel Sounds, Non Tender, Non Distended, Soft, No Organomegaly - Rectal Rectal Exam: Deferred - External Exam: Deferred Exam: Deferred - Extremities Extremities Exam: Normal Inspection - Back Back Exam: Normal Inspection - Neurological Neurological Exam: Alert, Oriented x 3, CN II-XII Intact, No Facial Droop, Speech Intact / Clear, Moves All Extremities Equally - Psychiatric Psychiatric Exam: Normal Affect - Integumentary Integumentary Exam: Normal Color Assessment and Plan - Patient Problems (1) Pneumonia, primary atypical Current Visit: No Status: Acute Comment: Continue current antibiotics, will cut back more on the steriod continue bronchodilator. We'll ask them to walk her around see how she feels today. Probably home tomorrow. Code(s): J18.9 - Pneumonia, unspecified organism (2) History of stroke Current Visit: Yes Status: Acute Comment: Same medication. Code(s): Z86.73 - Personal history of transient ischemic attack (TIA), and cerebral infarction without residual deficits (3) COPD exacerbation Current Visit: Yes Status: Acute Comment: Continue steroid but at a lower dose continue bronchodilator and antibiotics. Though she does not have a formal diagnosis of COPD but with the finding of emphysematous changes on the CT suggests that there is underlying COPD. Probably she need to have a spirometry later on as an outpatient. Code(s): J44.1 - Chronic obstructive pulmonary disease with (acute) exacerbation
[2018-10-30] MEDS ORDERED: AZITHROMYCIN 250 MG TABLET PO SCH (20:00)
[2018-10-30] MEDS: cefTRIAXone Inj 1 GM in Sodium Chloride 0.9% 100 ML IV SCH (20:32)
[2018-10-30] MEDS: traZODone Tab 50 MG TAB PO SCH (20:32)
[2018-10-30] MEDS: ATORVASTATIN 40 MG TABLET PO SCH (20:32)
[2018-10-31] MEDS: methylPREDNISolone 125 MG/2 ML VIAL IVP SCH ×2 (00:16→08:43)
[2018-10-31] MEDS: ALPRAZolam Tab 0.25 MG TABLET PO PRN ×2 (00:17→08:48)
[2018-10-31] MEDS: ALBUTEROL SULFATE 2.5 MG/3 ML NEB PRN (01:06)
[2018-10-31] MEDS: IPRATROPIUM/ALBUTEROL SULFATE 3 ML NEB NEB SCH ×2 (06:22→10:56)
[2018-10-31] MEDS: PANTOPRAZOLE 40 MG TABLET PO SCH (07:07)
[2018-10-31] MEDS: Potassium Chloride Tab 10 MEQ TAB PO SCH (08:43)
[2018-10-31] MEDS: ASPIRIN 325 MG EC TABLET PO SCH (08:43)
--- NOTE | 2018-10-31 11:25 | DCSUMMARY ---
Hospitalization Summary Admit Date: 10/28/2018 Discharge Date: 10/31/18 Hospital Course: Discharge diagnoses 1. Atypical pneumonia 2. COPD exacerbation secondary to above 3. Hypoxia likely secondary to the above 4. History of CVA in May 2017 5. History of previous pancreatitis with previous stents 6. History of alcoholism in the past 7. History of cholecystectomy 8. Centrilobular emphysema on CT 9. 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 10. Anxiety Hospital course This is a 48 years old female with medical history significant for history of p revious CVA in 2016 currently on aspirin and Lipitor presented to the hospital with history of cough, nasal congestion, shortness of breath and wheezing being going on for 10 days. Symptoms persisted and because of that she came into the ER. In the ER she was found to be hypoxic with saturation of 86% she was given DuoNeb and that helped her symptoms. The chest x-ray showed no evidence of infiltrate. The CT of the chest showed no PE but did showed evidence of patchy infiltrate and she was admitted. She was admitted to the hospital and treated as COPD exacerbation also an atypical pneumonia she was given antibiotic, steroid and bronchodilator treatment. Biofire aspartate panel showed rhino/enterovirus. Gradually there was improvement in her symptoms her appetite improved, her wheezing improved on the day of discharge she did walk around her oxygen need was about 3 liters at rest and 5 L with walking. The patient though does not have a previous diagnosis of COPD but I did tell tell that its possible that she has underlying COPD. The CT showed centrilobular emphysema. I did tell her that after this illness she she need to have pulmonary function test to confirm the diagnosis and the stage of it. She will follow-up with her primary for that. I did mention to her that there is a evidence of prior thrombosis on CT of the subclavian and the axillary vein and she did say that she had previous central lines and probably that the reason for it. She is asymptomatic from it at this moment. She did have some anxiety and was discharged on a few pills of Xanax. Discharge instruction Diet regular Activity as tolerated Medications Current Medication(s) Medication Instructions Recorded Confirmed Type Aspirin [Kori Chewable Aspirin] 81 mg PO DAILY 07/06/17 10/29/18 History atorvastatin 40 mg tablet 40 mg PO BEDTIME #30 tab 08/29/18 10/29/18 Rx ALPRAZolam Tab [Xanax Tab] 0.25 mg PO TID PRN #12 tab 10/31/18 Rx Albuterol/Ipratrop Neb Soln 3 ml NEB RTQID #30 ampul.neb 10/31/18 Rx [Duoneb Neb Soln] Azithromycin [Zithromax] 250 mg PO DAILY #4 tab 10/31/18 Rx Cefdinir Cap [Omnicef Cap] 300 mg PO BID #6 cap 10/31/18 Rx predniSONE Tab [Deltasone Tab] 10 mg PO DAILY #20 tab 10/31/18 Rx Follow-up with PCP in 1-2 weeks Condition at discharge was stable for discharge Exam - Vitals Vital Signs: Vital Signs Temperature 96.9 F Temperature Source Temporal Artery Scan Pulse Rate [Apical] 93 Pulse Rate [Pulse Oximeter] 86 Pulse Rate 83 Respiratory Rate 18 Blood Pressure [Right Arm] 104/63 Blood Pressure [Left Arm] 94/48 Blood Pressure 126/72 Pulse Ox 92 Oxygen Flow Rate 3 Oxygen Delivery Method Nasal Cannula Height 5 ft 7 in Weight 173 lb - General General Appearance: No Acute Distress, Cooperative - Head Head Exam: Normal Inspection - Eye Eye Exam: POSITIVE: Normal Appearance - ENT ENT Exam: POSITIVE: Normal Exam - Neck Neck Exam: Normal Inspection - Respiratory Additional Respiratory Exam Details: Poor air entry otherwise clear - Cardiovascular Cardiovascular Exam: POSITIVE: RRR - GI/Abdominal GI/Abdominal Exam: POSITIVE: Normal Bowel Sounds, Non Tender, Non Distended, Soft, No Organomegaly - Rectal Rectal Exam: POSITIVE: Deferred - External Exam: POSITIVE: Deferred - Extremities Extremities Exam: POSITIVE: Normal Inspection - Back Back Exam: POSITIVE: Normal Inspection - Neurological Neurological Exam: POSITIVE: Alert, Oriented x 3, CN II-XII Intact, No Facial Droop, Speech Intact / Clear - Psychiatric Psychiatric Exam: POSITIVE: Normal Affect - Integumentary Integumentary Exam: POSITIVE: Normal Color Patient Problems - Patient Problem List (1) Pneumonia, primary atypical Current Visit: No Status: Acute Code(s): J18.9 - Pneumonia, unspecified organism Category: Medical (2) History of stroke Current Visit: Yes Status: Acute Code(s): Z86.73 - Personal history of transient ischemic attack (TIA), and cerebral infarction without residual deficits Category: Medical (3) COPD exacerbation Current Visit: Yes Status: Acute Code(s): J44.1 - Chronic obstructive pulmonary disease with (acute) exacerbation Category: Medical
[2018-10-31 12:15] VITALS: BP 114/74; RESP 24; TEMP 97.8; O2SAT 91
== END 2018-10-31 13:31 | disposition home or self-care (01) | DRG 194 ==
LOC: ER 17:28 → MED/SURG 20:43
PROVIDERS: ADMIT Internal Medicine; ATTEND Internal Medicine